=== PATIENT | female | born 1940 | race Caucasian/White ===

== ENCOUNTER 2018-12-10 20:15 | Emergency (ER) | payer OTHER ==
[~2018-12-10] VITALS: Ht 160 cm; Wt 68.0 kg
[2018-12-10] MEDS ORDERED: AVAPRO300 MG PO (20:54)
[2018-12-10] MEDS ORDERED: TOPROL XL100 MG PO (20:55)
[2018-12-10] MEDS ORDERED: VERAPAMIL HCL40 MG PO (20:55)
[2018-12-10] MEDS ORDERED: HYDRODIURIL12.5 MG PO (20:56)
[2018-12-10] MEDS ORDERED: LANTUS SOL100 UNIT/1 SUBCUTANEO (20:56)
[2018-12-10] MEDS ORDERED: HUMALOG100 UNIT/1 SUBCUTANEO (20:57)
[2018-12-10] MEDS ORDERED: VISTARIL50 MG PO (20:57)
== END 2018-12-11 00:01 | disposition home or self-care (01) ==
LOC: ER 20:15
DX: E11.649 Type 2 diabetes mellitus with hypoglycemia without coma (principal)

== ENCOUNTER 2021-09-23 17:24 | Emergency (ER) | payer OTHER ==
[~2021-09-23] VITALS: Ht 167.6 cm; Wt 75.7 kg
[~2021-09-23 17:24] MED LIST: AVAPRO300 MG PO; HUMALOG100 UNIT/1 SUBCUTANEO; HYDRODIURIL12.5 MG PO; LANTUS SOL100 UNIT/1 SUBCUTANEO; TOPROL XL100 MG PO; VERAPAMIL HCL40 MG PO; VISTARIL50 MG PO
[2021-09-24] MEDS ORDERED: IBU400 MG PO (05:27)
== END 2021-09-24 05:40 | disposition home or self-care (01) ==
LOC: ER 17:24
DX: S93.491A Sprain of other ligament of right ankle, initial encounter (principal); S00.83XA Contusion of other part of head, initial encounter; R55 Syncope and collapse; W18.09XA Striking against other object with subsequent fall, initial encounter; Y93.F2 Activity, caregiving, lifting; Y92.092 Bedroom in other non-institutional residence as the place of occurrence of the external cause; Y99.8 Other external cause status

== ENCOUNTER → 2025-04-20 | Emergency (ER) | payer OTHER ==
[~2025-04-20] VITALS: Ht 167.6 cm; Wt 72.6 kg
[~2025-04-20] MED LIST changes: +0.9 % SODIUM CHLORIDE 1,000 ML IV ONE; +CANDESARTAN CILE4 MG; +HYDROCHLOROTHIA25 MG; +IBU400 MG PO; +INSULIN REGULAR, HUMAN 1,000 UNIT/10 ML UNITS IV ONE; +KETOROLAC TROMETHAMINE 30 MG VIAL IV ONE; +KETOROLAC TROMETHAMINE 30 MG VIAL ONE; +PIPERACILLIN/TAZOBACTAM SODIUM 3.375 GM VIAL IV ONE; +TOPROL XL50 M1; +VERAPAMIL ER120 MG
[2025-04-20 17:38] LABS: BASO % 0.4 % (0.1-1.2); EOS # 0.08 (0.04-0.54); EOS % 0.6 % (0.7-7.0); HEMOGLOBIN 14.7 g/dL (11.2-15.7); LYMPH # 2.18 (1.18-3.74); LYMPH % 17.6 % (19.3-53.1); MEAN CORPUSCULAR HEMOGLOBIN 28.5 pg (25.6-32.2); MONO # 0.96 (0.24-0.82); MONO % 7.7 % (4.7-12.5); NEUT # 9.06 (1.56-6.13); NEUT % 73.1 % (34.0-71.1); PLATELET COUNT 393 K/uL (163-369); RED BLOOD COUNT 5.15 M/uL (3.93-5.22); RED CELL DISTRIBUTION WIDTH 13.2 % (11.6-14.4)
[2025-04-20 17:58] LABS: INR 1.04; PARTIAL THROMBOPLASTIN TIME 26.8 SECONDS (22.0-34.0); PROTHROMBIN TIME 11.3 SECONDS (9.0-11.5)
[2025-04-20 18:04] LABS: INFLUENZA A AG NEGATIVE (NEGATIVE); INFLUENZA B AG NEGATIVE (NEGATIVE)
[2025-04-20 18:05] LABS: COVID-19 AG NEGATIVE (NEGATIVE)
[2025-04-20 18:10] LABS: ALBUMIN 3.1 gm/dL (3.4-5.0); BILIRUBIN TOTAL 0.83 mg/dL (0.3-1.2); CALCIUM 8.6 mg/dL (8.5-10.1); CREATININE SERUM 1.31 mg/dL (0.55-1.02); GFR 38.59; GLOBULINA 3.9 G/DL (2.4-3.5); POTASSIUM 4.76 mEq/L (3.5-5.1)
[2025-04-20 21:10] LABS: URINE APPEARANCE Clear; URINE BILIRRUBIN Negative (NEGATIVE); URINE BLOOD Negative; URINE COLOR Yellow; URINE LEUKOCYTE Negative; URINE NITRATE Negative; URINE PROTEIN Negative (NEGATIVE)
[2025-04-20 21:14] LABS: URINE BACTERIA 8.5 uL (0.0-1933); URINE EPITHELIAL CELLS 5.5 uL (0.0-38.8); URINE RBC 3.6 uL (0.0-20.8); URINE WBC 3.6 uL (0.0-23.2)
[2025-04-20 21:59] LABS: URINE CAST 1.03 uL (0.0-1.40); URINE GLUCOSE >=1000 MG/DL (NEGATIVE); URINE KETONE 80 (NEGATIVE)
== END | disposition designated cancer center or children's hospital (05) ==
LOC: ER
PROVIDERS: General Practice
DX: S32.029A Unspecified fracture of second lumbar vertebra, initial encounter for closed fracture (principal); G89.11 Acute pain due to trauma; M54.50 Low back pain, unspecified; R05.8 Other specified cough; I10 Essential (primary) hypertension; F03.90 Unspecified dementia, unspecified severity, without behavioral disturbance, psychotic disturbance, mood disturbance, and anxiety; E11.65 Type 2 diabetes mellitus with hyperglycemia; Z79.4 Long term (current) use of insulin; Z20.822 Contact with and (suspected) exposure to COVID-19; W18.39XA Other fall on same level, initial encounter; Y93.89 Activity, other specified; Y92.89 Other specified places as the place of occurrence of the external cause
CPT/HCPCS: 36415; 51702; 70450; 71045; 71250; 72125; 72131; 72148; 72170; 93005; 96365; 96366; 99285; J1815; J1885; J2543; J7030; 72158